=== PATIENT | female | born 1985 | race Caucasian/White ===

== ENCOUNTER 2020-09-01 12:31 | Inpatient (IN) | payer MEDICAID, SELFPAY ==
[~2020-09-01] VITALS: Ht 160 cm; Wt 73.5 kg
[2020-09-01 12:33] VITALS: BP 117/70
--- NOTE | 2020-09-01 12:48 | NUR ---
34 Y/O FEMALE C/O RIGHT SIDED FLANK PAIN X2 DAYS. PT WAS REFFERED TO COME TO ER BY PCP FOR FLANK PAIN. DENIES ANY DYSURIA OR URGENCY. DENIES ANY VAGINAL BLEEDING OR DISCHARGE. PT STATES SHE HAD ABDOMINAL SURGERY LAST YEAR BUT CANNOT RECALL FOR WHAT. ABD IS SOFT/ NON TENDER. DENIES ANY EXCESSIVE NAUSEA OR VOMITING. NKDA
[2020-09-01] MEDS ORDERED: ACETAMINOPHEN EXTRA STRENGTH 500 MG TAB PO ONE (13:00)
[2020-09-01] MEDS ORDERED: NACL 0.9% 1,000 ML IV ONE ×2 (13:00)
[2020-09-01 13:16] LABS: BASOPHILS # (AUTO) 0.1 K/uL (0.00-0.22); BASOPHILS % (AUTO) 0.5 % (0.0-2.0); EOSINOPHILS # (AUTO) 0.1 K/uL (0-0.4); EOSINOPHILS % (AUTO) 0.9 % (0.0-4.0); HEMATOCRIT 32.2 % (36-48); HEMOGLOBIN 10.9 g/dL (12.0-16.0); LYMPHOCYTES # (AUTO) 2.1 K/uL (2.5-16.5); MEAN CORPUSCULAR HEMOGLOBIN 30 pg (27-31); MEAN CORPUSCULAR HGB CONC 34 g/dL (33-37); MONOCYTES # (AUTO) 0.6 K/uL (0.8-1.0); MONOCYTES % (AUTO) 5.2 % (1.7-9.3); NEUTROPHILS # (AUTO) 8.7 K/uL (1.8-7.7); NEUTROPHILS % (AUTO) 75.4 % (42.2-75.2); PLATELET COUNT (AUTO) 214 K/uL (140-450); RED BLOOD CELL COUNT(AUTO) 3.71 MIL/uL (4.20-5.40); WHITE BLOOD COUNT (AUTO) 11.5 K/uL (4.8-10.8)
[2020-09-01 13:27] LABS: APPEARANCE,URINE CLEAR (CLEAR); BILIRUBIN,URINE NEGATIVE (NEGATIVE); BLOOD, URINE TRACE-L (NEGATIVE); COLOR,URINE YELLOW (YELLOW); LEUKOCYTE ESTERASE ,URINE NEGATIVE (NEGATIVE); NITRITE, URINE NEGATIVE (NEGATIVE); UGLUCOSE NEGATIVE (NEGATIVE)
[2020-09-01 13:33] LABS: ALBUMIN 2.8 g/dL (3.4-5.0); ANION GAP 14.2 (8-16); CARBON DIOXIDE 23.3 mmol/L (21-32); CREATININE 0.6 mg/dL (0.6-1.3); POTASSIUM 3.5 mmol/L (3.5-5.1); TOTAL BILIRUBIN 0.2 mg/dL (0.0-1.0)
[2020-09-01 13:50] LABS: WBC,URINE 16-25 (MOD) /HPF (0-5)
--- NOTE | 2020-09-01 14:56 | NUR ---
PT SANIAID SWABBED AND WALKED TO LAB
[2020-09-01] MEDS ORDERED: cefTRIAXone 1,000 MG VIAL ONE (15:17)
[2020-09-01] MEDS ORDERED: DOCUSATE SODIUM 100 MG GELCAP PO PRN (15:20)
[2020-09-01] MEDS ORDERED: MORPHINE SULFATE 2 MG/ML SYR IVP PRN (15:20)
[2020-09-01] MEDS ORDERED: LORazepam 2 MG/ML VIAL IM/IVP PRN (15:20)
[2020-09-01] MEDS ORDERED: ACETAMINOPHEN 325 MG TAB PO PRN (15:20)
[2020-09-01] MEDS ORDERED: ONDANSETRON 4 MG/2 ML VIAL IVP PRN (15:20)
[2020-09-01] MEDS ORDERED: HYDROcodone/APAP 5/325 MG 1 TAB TAB PO PRN (15:20)
[2020-09-01] MEDS ORDERED: ZOLPIDEM 5 MG TAB PO PRN (15:20)
[2020-09-01 16:04] LABS: BARBITURATE, URINE NEGATIVE ng/ml (NEG <=200); BENZODIAZEPINE, URINE NEGATIVE ng/mL (NEG <=200); CANNABINOID, URINE NEGATIVE ng/mL (NEG <=50); COCAINE, URINE NEGATIVE ng/mL (NEG <=300); OPIATE, URINE NEGATIVE ng/mL (NEG <=2000); PHENCYCLIDINE SCREEN,URINE NEGATIVE ng/mL (NEG <=25)
--- NOTE | 2020-09-01 16:05 | NUR ---
Note mickey in EDM - 09/01/20 at 1606 by [facility] PT AFTER SQ MED, STILL NO PAIN RELIEF. PT STATED PHARMACY ON FILE WAS OKAY TO OIL TESTER MEDS AND REQUESTED PAIN MEDICATION TO TAKE HOME. ERMD NOTIFIED.
[2020-09-01 16:07] LABS: PROTHROMBIN TIME 9.5 secs (10.8-13.4)
[2020-09-01 16:08] LABS: CHOL/HDL RATIO 2.5 (1-4.5); FREE T4 (FREE THYROXINE) 0.87 ng/dL (0.76-1.46); MAGNESIUM 1.8 mg/dL (1.8-2.4); PHOSPHORUS 3.5 mg/dL (2.5-4.9); THYROID STIMULATING HORMONE 1.45 uIU/mL (0.34-3.74)
[2020-09-01] MEDS: NACL 0.9% 1,000 ML IV SCH (16:30)
--- NOTE | 2020-09-01 17:29 | NUR ---
MRSA WAS SWABBED AND SENT TO LAB
--- NOTE | 2020-09-01 17:45 | NUR ---
Patient will be admitted to care of JAMIE FRIEDMAN. Admited to TELEMETRY. Will go to room 104B. Belongings list completed. Report to ERON TRACY.
[2020-09-01 18:48] VITALS: BP 109/62
--- NOTE | 2020-09-01 18:50 | NUR ---
Patient arrived in unit in wheeled chair. Able to verbalize needs. Ambulates to bathroom. Vital signs stable. Skin is intact and patient is 14 weeks . Breathing easy and unlabored. Denies difficulty urinating but has left lower flank pain rating it at 5/10. Patient oriented to room and using call light to signal for help. Safety co measures in place with bed lowered, call light within reach and has no further needs.
--- NOTE | 2020-09-01 19:30 | NUR ---
RECEIVED BEDSIDE ENDORSEMENT FROM AM SHIFT RN. PT IS AOX4, ON ROOM AIR, 14 WKS , DENIES PAIN, AMBULATORY, SAFETY MEASURES IN PLACE, PLAN OF CARE DISCUSSED, CALL LIGHT WITHIN REACH.
[2020-09-01] MEDS: LACTOBACILLUS RHAMNOSUS GG 1 EACH CAP PO SCH (20:39)
--- NOTE | 2020-09-01 20:41 | NUR ---
PROBIOTIC PO GIVEN ORDERED, TOLERATED WELL. CALL LIGHT WITHIN REACH.
--- NOTE | 2020-09-01 23:00 | NUR ---
PT IS WATCHING TV, DENIES PAIN, CALL LIGHT WITHIN REACH.
[2020-09-02] MEDS: NACL 0.9% 1,000 ML IV SCH ×2 (01:27→12:14)
--- NOTE | 2020-09-02 01:27 | NUR ---
IVF FINISHED AND CHANGED, PT AWAKE, NO C/O PAIN, CALL LIGHT WITHIN REACH.
--- NOTE | 2020-09-02 03:00 | NUR ---
PT ASLEEP, RESPIRATION EVEN AND UNLABORED, KEPT WARM AND COMFORTABLE, CALL LIGHT WITHIN REACH.
[2020-09-02 04:00] VITALS: BP 102/50
--- NOTE | 2020-09-02 04:00 | NUR ---
V/S TAKEN AND RECORDED, CALL LIGHT WITHIN REACH.
[2020-09-02 06:16] LABS: BASOPHILS % (AUTO) 0.3 % (0.0-2.0); EOSINOPHILS # (AUTO) 0.1 K/uL (0-0.4); EOSINOPHILS % (AUTO) 0.6 % (0.0-4.0); HEMOGLOBIN 10.7 g/dL (12.0-16.0); LYMPHOCYTES # (AUTO) 1.7 K/uL (2.5-16.5); LYMPHOCYTES % (AUTO) 16.7 % (20.5-51.1); MEAN CORPUSCULAR HEMOGLOBIN 30 pg (27-31); MEAN CORPUSCULAR HGB CONC 34 g/dL (33-37); MEAN CORPUSCULAR VOLUME 86.9 fL (80-94); MONOCYTES # (AUTO) 0.5 K/uL (0.8-1.0); MONOCYTES % (AUTO) 4.5 % (1.7-9.3); NEUTROPHILS # (AUTO) 7.9 K/uL (1.8-7.7); NEUTROPHILS % (AUTO) 77.9 % (42.2-75.2); PLATELET COUNT (AUTO) 209 K/uL (140-450); RED BLOOD CELL COUNT(AUTO) 3.57 MIL/uL (4.20-5.40); RED CELL DISTRIBUTION WIDTH 12.9 % (11.6-13.7); WHITE BLOOD COUNT (AUTO) 10.1 K/uL (4.8-10.8)
--- NOTE | 2020-09-02 06:50 | NUR ---
PT STABLE, NO DISTRESS, NO SOB, NO C/O PAIN, ALL NEEDS ATTENDED, KEPT COMFORTABLE, CALL LIGHT WITHIN REACH.
[2020-09-02 07:10] LABS: ANION GAP 12.7 (8-16); CARBON DIOXIDE 23.1 mmol/L (21-32); CREATININE 0.4 mg/dL (0.6-1.3); POTASSIUM 3.8 mmol/L (3.5-5.1)
[2020-09-02 07:12] LABS: MAGNESIUM 1.8 mg/dL (1.8-2.4)
--- NOTE | 2020-09-02 07:40 | NUR ---
PT STABLE, BEDSIDE ENDORSEMENT GIVEN TO AM SHIFT RN FOR CONTINUITY OF CARE.
--- NOTE | 2020-09-02 07:45 | NUR ---
RECEIVED BEDSIDE ENDORSEMENT FROM MARKETING SERVICES COORDINATOR RN. PT IS AOX4, ON ROOM AIR, 14 WKS , DENIES PAIN, AMBULATORY, SKIN IS WARM AND DRY. IV SITE ON RAC 20G. INTACT AND PATENT. PLAN OF CARE DISCUSSED. SAFETY MEASURES IN PLACE, BED IN LOW POSITION AND CALL LIGHT WITHIN REACH. WILL CONTINUE TO MONITOR.
[2020-09-02 08:00] VITALS: BP 98/47
[2020-09-02] MEDS: LACTOBACILLUS RHAMNOSUS GG 1 EACH CAP PO SCH (08:19)
--- NOTE | 2020-09-02 08:30 | NUR ---
ALL SCHEDULED MEDS GIVEN. PT COMPLAINED OF HEADACHE. ADMINISTERED TYLENOL PO PER MD ORDERED.
--- NOTE | 2020-09-02 09:11 | NUR ---
PATIENT HAS BEEN SCREENED AND CATEGORIZED LOW NUTRITION RISK. PATIENT WILL BE SEEN WITHIN 7 DAYS OF ADMISSION. 09/08/[address]
--- NOTE | 2020-09-02 11:00 | NUR ---
CHECKED ON PATIENT. PATIENT IS STABLE. NO RESPIRATORY DISTRESS NOTED. WILL CONTINUE TO MONITOR.
--- NOTE | 2020-09-02 12:51 | NUR ---
SOCIAL WORK NOTE: Patient's Orientation Person Situation Place Time Information Provided By PATIENT Comments SW WAS UNABLE TO MEET PATIENT AT BEDSIDE. SW COMPLETED ASSESSMENT WITH PATIENT TELEPHONICALLY. Octave Board Racker, Realtionship and Phone Number JACQUELINE FRANCIS [phone] [facility] Power of Supervisor Shuttle [employer]ene[employer] No Does Patient Have a POLST No Identifying Problems No Social Work Triggers Is A Social Work Consult Needed No Mandate Report Filed No Explanation Of Identifying Problems PATIENT IS A 34-YEAR-OLD FEMALE ADMITTED FOR FLANK PAIN. PATIENT HAS NO REPORTED PMHX. Admitted From Home Pre-Admission Level Of Functioning Status Independent/Ambulatory Prior Resources/Services Used In Last 12 Months No Prior Resources Used Prior DME No Prior DME Used Dialysis Comments N/A Living Situation Lives With Family House Patient Had Caregiver No Home Support No Caregiver Issues Financial Issues No Known Financial Issue Referral To The Financial Counselor Needed No Factors/Needs No D/C Needs Identified Pt/Rep Participated In Discharge Plan Yes Patient/Family Agress With Discharge Plan Yes Discharge Plan Comments TENTATIVE DISCHARGE PLAN IS FOR PATIENT TO RETURN HOME. DC Plan Status Initiated
--- NOTE | 2020-09-02 13:45 | NUR ---
INFORMED PATIENT THAT SHE WILL BE DISCHARGED TODAY AFTER RECEIVING ABX ROCEPHIN AT 1500. AWAITING MD TO PLACE DISCHARGE ORDERS. WILL CONTINUE TO MONITOR.
--- NOTE | 2020-09-02 15:00 | NUR ---
CHECKED ON PATIENT. PATIENT IS STABLE. NO RESPIRATORY DISTRESS NOTED. WILL CONTINUE TO MONITOR.
[2020-09-02 16:00] VITALS: BP 109/43
[2020-09-02 16:48] VITALS: BP 109/43
[2020-09-02] MEDS ORDERED: ONDANSETRON 4 MG ODT SL PRN (17:00)
[2020-09-02] MEDS ORDERED: ONDA-24 SL (17:02)
--- NOTE | 2020-09-02 17:41 | NUR ---
PATIENT COMPLAINED OF NAUSEA. ADMINISTERED ZOFRAN PO PER MD ORDERED.
--- NOTE | 2020-09-02 18:00 | NUR ---
EDUCATED PATIENT REGARDING THEIR DISCHARG ORDER. PATIENT SIGNED THE FORMS AND DISCHARGED OF THE UNIT. PATIENT WAS STABLE PRIOR TO DISCHARGE.
== END 2020-09-02 18:00 | disposition home or self-care (01) | DRG 566 ==
LOC: MED 12:31 → MTU 15:23
PROVIDERS: ADMIT Family Medicine; ATTEND Family Medicine
DX: O23.02 Infections of kidney in pregnancy, second trimester (principal); O34.219 Maternal care for unspecified type scar from previous cesarean delivery; N85.8 Other specified noninflammatory disorders of uterus; Z20.822 Contact with and (suspected) exposure to COVID-19; O25.12 Malnutrition in pregnancy, second trimester; Z90.49 Acquired absence of other specified parts of digestive tract; Z87.440 Personal history of urinary (tract) infections; Z3A.14 14 weeks gestation of pregnancy; Z79.899 Other long term (current) drug therapy
CPT/HCPCS: 36415; 76705; 76770; 80048; 80053; 80305; 81001; 82150; 83036; 83605; 83690; 83735; 83880; 84100; 84439; 84443; 84484; 85025; 85610; 85730; 87040; 87081; 87086; 96360; 99285; J0696; J7030; J7060; Q0162